=== PATIENT | female | born 1970 | race Caucasian/White ===

== ENCOUNTER 2016-10-27 17:23 | Emergency (ER) | payer SELFPAY ==
--- NOTE | 2016-10-27 17:44 | ER Document Report ---
ED Medical Screen (RME) - General Stated Complaint: DIZZY,NUMBNESS IN RIGHT ARM,HEADACHE Notes: 46 yo female c/o feeling dizzy, numbness in right arm and leg,headache. pt started new BP med Lisinopril/HCTZ about 2 weeks ago and these symptoms started. at 530 this morning, pt c/o increased dizziness, stumbling, slurred speech. presently pt feeling light headed, speech is clear presently. no chest pain or shortness of breath. + right sided deficits
[2016-10-27 18:32] LABS: ABSOLUTE BASOPHILS # (AUTO) 0.1 10^3/uL (0.0-0.2); ABSOLUTE EOSINOPHILS # (AUTO) 0.6 10^3/uL (0.0-0.6); ABSOLUTE LYMPHOCYTES (AUTO) 3.1 10^3/uL (0.5-4.7); ABSOLUTE MONOCYTES (AUTO) 0.9 10^3/uL (0.1-1.4); ABSOLUTE NEUT (AUTO) 5.1 10^3/uL (1.7-8.2); HEMATOCRIT 41.1 % (36.0-47.0); HEMOGLOBIN 13.5 g/dL (12.0-15.5); HGB HCT DIFFERENCE -0.6; LYMPHOCYTES % (AUTO) 31.7 % (13-45); MEAN CORPUSCULAR HEMOGLOBIN 25.4 pg (27.0-33.4); MEAN CORPUSCULAR HGB CONC 32.9 g/dL (32.0-36.0); MEAN CORPUSCULAR VOLUME 77 fl (80-97); MONOCYTES % (AUTO) 9.2 % (3-13); RED BLOOD COUNT 5.32 10^6/uL (3.72-5.28); RED CELL DISTRIBUTION WIDTH 20.5 % (11.5-14.0); SEGMENTED NEUTROPHILS % (AUTO) 52.1 % (42-78); WHITE BLOOD COUNT 9.7 10^3/uL (4.0-10.5)
[2016-10-27 18:41] LABS: PROTHROMBIN TIME 12.7 SEC (11.4-15.4)
--- NOTE | 2016-10-27 18:52 | ER Document Report ---
ED General - General Chief Complaint: Dizziness Stated Complaint: DIZZY,NUMBNESS IN RIGHT ARM,HEADACHE Notes: Patient is a 46-year-old female with past medical history of hypertension who presents with 2 weeks of intermittent migratory neurologic complaints. She presents today with concerns about paresthesias of her right upper and lower extremity as well as "slurred speech". States that her symptoms have been ongoing since she started a lisinopril hydrochlorothiazide combo pill. Notes that they are intermittent and do spontaneously resolve. She has had both left and right-sided symptoms. Denies a history of similar symptoms prior to the last 2 weeks. She is not had any chest pain, nausea, vomiting or diaphoresis. No neck pain, headache, or fever. Nothing improves or worsens or symptoms. She has not seen her primary care physician regarding today's concerns. TRAVEL OUTSIDE OF THE [place] IN LAST 30 DAYS: No - Related Data Allergies/Adverse Reactions: No Known Allergies Allergy (Unverified 10/27/16 17:45) Home Medications: Current Home Medications Lisinopril/Hydrochlorothiazide [Lisinopril-Hctz 20-12.5 mg Tab] 1 each PO DAILY 10/27/16 [History] Past Medical History - General Information source: Patient - Social History Smoking Status: Current Every Day Smoker Chew tobacco use (# tins/day): No Frequency of alcohol use: None Drug Abuse: None Lives with: Spouse/Significant other Family History: Reviewed & Not Pertinent Patient has suicidal ideation: No Patient has homicidal ideation: No Renal/ Medical History: Denies: Hx Peritoneal Dialysis Review of Systems - Review of Systems Notes: Constitutional: Negative for fever. HENT: Negative for sore throat. Eyes: Negative for visual changes. Cardiovascular: Negative for chest pain. Respiratory: Negative for shortness of breath. Gastrointestinal: Negative for abdominal pain, vomiting or diarrhea. Genitourinary: Negative for dysuria. Musculoskeletal: Negative for back pain. Skin: Negative for rash. Neurological: Negative for headaches, positive for right-sided weakness and numbness by complaint 10 point ROS negative except as marked above and in HPI. Physical Exam - Vital signs Vitals: Temp Pulse Resp BP Pulse Ox 98.2 F 89 14 137/89 H 94 10/27/16 17:38 10/27/16 17:38 10/27/16 17:38 10/27/16 17:38 10/27/16 17:38 Interpretation: Normal Notes: PHYSICAL EXAMINATION: GENERAL: Well-appearing, well-nourished and in no acute distress. HEAD: Atraumatic, normocephalic. EYES: Pupils equal round and reactive to light, extraocular movements intact, sclera anicteric, conjunctiva are normal. ENT: nares patent, oropharynx clear without exudates. Moist mucous membranes. NECK: Normal range of motion, supple without lymphadenopathy LUNGS: Breath sounds clear to auscultation bilaterally and equal. No wheezes rales or rhonchi. HEART: Regular rate and rhythm without murmurs ABDOMEN: Soft, nontender, normoactive bowel sounds. No guarding, no rebound. No masses appreciated. EXTREMITIES: Normal range of motion, no pitting or edema. No cyanosis. NEUROLOGICAL: 5 out of 5 strength with distal and proximally in the left upper and lower extremity. The right upper extremity and lower summary both move spontaneously with full strength when not specific testing strength of the patient provides minimal to no effort in either the upper or lower distributions on the right during specific strength testing. Finger to nose normal bilaterally. No pronator drift. Face symmetric. No aphasia. Speech is clear and fluent. Pupils equal and reactive. Extraocular motions intact. Palatal elevation symmetric. PSYCH: Normal mood, normal affect. SKIN: Warm, Dry, normal turgor, no rashes or lesions noted. Course - Re-evaluation Re-evalutation: 10/27/16 18:46 Patient presents with complaints of lightheadedness with associated intermittent neurologic symptoms. Today she is complaining about right-sided paresthesias and weakness both in upper and lower extremity but not the face. She also complains of slurred speech. Physical examination reveals multiple inconsistencies in patient's neurologic exam that are not consistent with an actual stroke. Specifically patient will not provide any strength effort on her right side when testing simultaneously on the left. Likewise patient will not hold her arm up when asked to for strength testing but performs pronator drift testing without difficulty. Likewise finger to nose testing is handled without any apparent strain on her upper extremity for strength but again when strength testing is requested her arm is not able to be lifted off the bed voluntarily. Her face is symmetric. If patient truly had a stroke in the distribution that would decrease strength in both her lower and upper extremity of the right her face would likewise be involved (MCA distribution). Her clinical history of migratory neurologic deficits including both left and right- sided symptoms is not consistent with either a stroke or TIA. Alternative considerations include a medication side effect as patient states the symptoms started after starting both lisinopril and hydrochlorothiazide, and it could be secondary to patient's rapid reduction in blood pressure from her normal which is apparently in the 220s to the 130s in the span of just several days. Multiple sclerosis is another alternative consideration. Her CT scan is unremarkable. Laboratories likewise are not notable for any acute findings. I do not see an indication for emergent MRI imaging, carotid Doppler studies, or admission to the hospital. I have encouraged her to follow-up with neurology as an outpatient should her symptoms fail to resolve after discontinuation of the medication. I've also encouraged her to follow-up with her primary care physician.At this time will discharge with return precautions and follow-up recommendations. Verbal discharge instructions given a the bedside and opportunity for questions given. Medication warnings reviewed. Patient is in agreement with this plan and has verbalized understanding of return precautions and the need for primary care follow-up in the next 24-72 hours. 10/28/16 1930 Of note, patient was able to ambulate out of the emergency department without any difficulty. - Vital Signs Vital signs: Temp Pulse Resp BP Pulse Ox 98.2 F 80 17 133/70 H 98 10/27/16 17:38 10/27/16 18:26 10/27/16 19:17 10/27/16 19:17 10/27/16 19:17 - Laboratory Result Diagrams: 10/27/16 18:15 10/27/16 19:00 Laboratory results interpreted by me: 10/27/16 10/27/16 18:15 19:00 RBC 5.32 H MCV 77 L MCH 25.4 L RDW 20.5 H Glucose 123 H - Diagnostic Test Radiology reviewed: Image reviewed, Reports reviewed - EKG Interpretation by Me Additional EKG results interpreted by me: 10/28/16 03:18 Normal sinus rhythm. Rate 74. No ST elevations or depressions. QTC 422. Discharge - Discharge Clinical Impression: Lightheadedness, Numbness and tingling Condition: Good Disposition: HOME, SELF-CARE Additional Instructions: Your symptoms do not appear to be related to a stroke today. These follow-up closely with your primary care doctor and follow-up with neurology for symptoms have not resolved in the next 24-48 hours. Return immediately to the emergency department if you have worsening of any of your other symptoms. Please also return if you have any new concerns, chest pain, shortness of breath, vomiting, or any other symptoms that are worrisome to you. Forms: Return to Work Referrals: OLIVIA KANG, LATOYA-C [Primary Care Provider] - Follow up as needed
[2016-10-27 19:25] VITALS: BP 133/70
[2016-10-27 19:37] LABS: ALANINE AMINOTRANSFERASE 20 U/L (9-52); ALBUMIN 3.7 g/dL (3.5-5.0); ALKALINE PHOSPHATASE 77 U/L (38-126); ANION GAP 13 (5-19); ASPARTATE AMINO TRANSFERASE 15 U/L (14-36); BILIRUBIN,TOTAL 0.3 mg/dL (0.2-1.3); BLOOD UREA NITROGEN 15 mg/dL (7-20); CALCIUM 9.6 mg/dL (8.4-10.2); CARBON DIOXIDE 24 mmol/L (22-30); CHLORIDE 103 mmol/L (98-107); GLUCOSE 123 mg/dL (75-110); POTASSIUM 4.1 mmol/L (3.6-5.0); SODIUM 139.9 mmol/L (137-145); TOTAL PROTEIN 6.7 g/dL (6.3-8.2)
--- NOTE | 2016-10-28 11:26 | EKG REPORT ---
SEVERITY:- ABNORMAL ECG - SINUS RHYTHM CONSIDER LEFT VENTRICULAR HYPERTROPHY BORDERLINE T ABNORMALITIES, INFERIOR LEADS : Confirmed by: Jonathon Escobar 28-Oct-2016 11:25:46
== END 2016-10-27 19:18 | disposition home or self-care (01) ==
LOC: ER 17:23
DX: R42 Dizziness and giddiness (principal); R20.0 Anesthesia of skin; M79.601 Pain in right arm; R51 Headache; F17.210 Nicotine dependence, cigarettes, uncomplicated; Z79.899 Other long term (current) drug therapy
CPT/HCPCS: 36415; 70450; 80053; 85025; 85610; 93005; 93010; 99284

== ENCOUNTER 2016-10-29 13:38 | Inpatient (IN) | payer SELFPAY ==
--- NOTE | 2016-10-29 14:11 | ER Document Report ---
ED Medical Screen (RME) - General Stated Complaint: ABNORMAL LABS Notes: Patient is a 46-year-old female presents emergency department after referral from Christiane Bergeron for evaluation. Patient was seen here [address] Rome and was ruled out having a CVA. Patient presents with numbness on the right side of her body. That is not resolved over the past 2 days. Denies urinary or stool incontinence, saddle anesthesia I have greeted and performed a rapid initial assessment of this patient. A comprehensive ED assessment and evaluation of the patient, analysis of test results and completion of the medical decision making process will be conducted by additional ED providers. TRAVEL OUTSIDE OF THE [place] IN LAST 30 DAYS: No - Related Data Allergies/Adverse Reactions: No Known Allergies Allergy (Verified 10/29/16 14:09) Past Medical History - Past Medical History Cardiac Medical History: Reports: Hx Hypertension Renal/ Medical History: Denies: Hx Peritoneal Dialysis - Immunizations Hx Diphtheria, Pertussis, Tetanus Vaccination: Yes
[2016-10-29] MEDS ORDERED: ONDANSETRON HCL INJ/PF 4 MG/2 ML SDV IV ONE (17:16)
[2016-10-29] MEDS ORDERED: NORMAL SALINE 1000 ML 1,000 ML IV ONE ×2 (17:16)
[2016-10-29] MEDS ORDERED: PROCHLORPERAZINE EDISYLATE INJ 10 MG/2 ML VIAL IV ONE (17:16)
[2016-10-29 18:48] LABS: ABSOLUTE EOSINOPHILS # (AUTO) 0.3 10^3/uL (0.0-0.6); ABSOLUTE LYMPHOCYTES (AUTO) 2.9 10^3/uL (0.5-4.7); ABSOLUTE MONOCYTES (AUTO) 0.7 10^3/uL (0.1-1.4); ABSOLUTE NEUT (AUTO) 4.7 10^3/uL (1.7-8.2); BASOPHILS % (AUTO) 0.5 % (0-2); EOSINOPHILS % (AUTO) 3.3 % (0-6); HEMATOCRIT 40.9 % (36.0-47.0); HEMOGLOBIN 13.3 g/dL (12.0-15.5); LYMPHOCYTES % (AUTO) 33.6 % (13-45); MEAN CORPUSCULAR HEMOGLOBIN 25.2 pg (27.0-33.4); MEAN CORPUSCULAR HGB CONC 32.4 g/dL (32.0-36.0); MEAN CORPUSCULAR VOLUME 78 fl (80-97); MONOCYTES % (AUTO) 8.2 % (3-13); RED BLOOD COUNT 5.27 10^6/uL (3.72-5.28); RED CELL DISTRIBUTION WIDTH 20.6 % (11.5-14.0); SEGMENTED NEUTROPHILS % (AUTO) 54.4 % (42-78); WHITE BLOOD COUNT 8.6 10^3/uL (4.0-10.5)
[2016-10-29 19:13] LABS: ALANINE AMINOTRANSFERASE 23 U/L (9-52); ALBUMIN 4.1 g/dL (3.5-5.0); ALKALINE PHOSPHATASE 80 U/L (38-126); ANION GAP 11 (5-19); ASPARTATE AMINO TRANSFERASE 15 U/L (14-36); BILIRUBIN,TOTAL 0.5 mg/dL (0.2-1.3); BLOOD UREA NITROGEN 14 mg/dL (7-20); CALCIUM 9.7 mg/dL (8.4-10.2); CARBON DIOXIDE 25 mmol/L (22-30); CHLORIDE 105 mmol/L (98-107); CREATININE RESULT 0.69 mg/dL (0.52-1.25); GLUCOSE 79 mg/dL (75-110); POTASSIUM 4.1 mmol/L (3.6-5.0); SODIUM 140.7 mmol/L (137-145); TOTAL PROTEIN 6.5 g/dL (6.3-8.2)
[2016-10-29] MEDS ORDERED: ASPIRIN 325 MG TABLET PO ONE (21:29)
--- NOTE | 2016-10-29 21:48 | EKG REPORT ---
SEVERITY:- NORMAL ECG - SINUS RHYTHM : Confirmed by: Jonathon Escobar 29-Oct-2016 21:47:28
[2016-10-29] MEDS ORDERED: ACETAMINOPHEN 325 MG TABLET PO PRN (21:57)
[2016-10-29] MEDS ORDERED: DOCUSATE SODIUM 100 MG CAPSULE PO PRN (21:57)
[2016-10-29] MEDS ORDERED: ONDANSETRON HCL INJ/PF 4 MG/2 ML SDV IV PRN (21:57)
--- NOTE | 2016-10-29 22:12 | ER Document Report ---
ED General - General Chief Complaint: Numbness Stated Complaint: ABNORMAL LABS TRAVEL OUTSIDE OF THE [place] IN LAST 30 DAYS: No - HPI Patient complains to provider of: numbness decreased right upper right lower extremity strength Notes: Patient coming in for evaluation of right arm numbness right arm weakness right lower extremity weakness. Patient states is been ongoing for approximately now 72 hours was recently seen and evaluated no clear etiology seen was discharged home patient follow up with her primary care physician again and was referred into the ER because of worsening symptoms. Patient states she is unable to move her right arm however sensation is intact. Patient also states that she is having weakness in her right foot. Denies any trauma denies any head trauma. Patient denies any past medical history cell for hypertension she takes HCTZ and lisinopril Also complains of mild headaches and dizziness. Patient is unable to quantify her dizziness. - Related Data Allergies/Adverse Reactions: No Known Allergies Allergy (Verified 10/29/16 14:09) Past Medical History - Social History Smoking Status: Current Every Day Smoker Chew tobacco use (# tins/day): No Frequency of alcohol use: None Drug Abuse: None Family History: Reviewed & Not Pertinent Patient has suicidal ideation: No Patient has homicidal ideation: No - Past Medical History Cardiac Medical History: Reports: Hx Hypertension Renal/ Medical History: Denies: Hx Peritoneal Dialysis Past Surgical History: Reports: Hx Tubal Ligation - Immunizations Hx Diphtheria, Pertussis, Tetanus Vaccination: Yes Review of Systems - Review of Systems Constitutional: No symptoms reported EENT: No symptoms reported Cardiovascular: No symptoms reported Respiratory: No symptoms reported Gastrointestinal: No symptoms reported Genitourinary: No symptoms reported Female Genitourinary: No symptoms reported Musculoskeletal: Other - Weakness Skin: No symptoms reported Hematologic/Lymphatic: No symptoms reported Neurological/Psychological: No symptoms reported -: Yes All other systems reviewed and negative Physical Exam - Vital signs Vitals: Temp Pulse Resp BP Pulse Ox 98.1 F 73 18 154/87 H 97 10/29/16 14:09 10/29/16 14:09 10/29/16 14:09 10/29/16 14:09 10/29/16 14:09 Interpretation: Normal - General General appearance: Appears well, Alert - HEENT Head: Normocephalic, Atraumatic Eyes: Normal Pupils: PERRL - Respiratory Respiratory status: No respiratory distress Chest status: Nontender Breath sounds: Normal Chest palpation: Normal - Cardiovascular Rhythm: Regular Heart sounds: Normal auscultation Murmur: No - Abdominal Inspection: Normal Distension: No distension Bowel sounds: Normal Tenderness: Nontender Organomegaly: No organomegaly - Back Back: Normal, Nontender - Extremities General upper extremity: Normal inspection, Nontender, Normal color, Normal temperature General lower extremity: Normal inspection, Nontender, Normal color, Normal temperature - Neurological Neuro grossly intact: Yes Cognition: Normal Orientation: AAOx4 [place] Coma Scale Eye Opening: Spontaneous [place] Coma Scale Verbal: Oriented [place] Coma Scale Motor: Obeys Commands [place] Coma Scale Total: 15 Speech: Normal Cranial nerves: Normal Motor strength normal: LUE, LLE. No: RUE - Decreased strength on the right upper extremity decreased letterpress setter strength when compared to the left. Patient does have reflexes intact patient is unable to hold her arm up to perform a pronator testing. There is no effort against gravity when trying to lift up the right arm., RLE - Decreased like strength in the right lower extremity normal Babinski's patient is able to lift leg off the bed approximately 4-5 inches Additional motor exam normals: Pronator drift. No: Equal letterpress setter Sensory: Normal Brachioradialis - Reflex grade: 2 = Normal - Psychological Associated symptoms: Normal affect, Normal mood - Skin Skin Temperature: Warm Skin Moisture: Dry Skin Color: Normal Course - Re-evaluation Re-evalutation: 10/29/16 22:35 Patient had a repeat of her CT head which was negative for any acute pathology. On initial examination unknown reason 1 patient would be unable to use her right side therefore an MRI was performed MRI of the brain MRA and of the cervical spine. MRA showed no specific etiology cervical spine only showed mild stenosis at C566 pace MR of the brain showed possible acute to subacute stroke in the right latasha and the right thalamus. They relate is to the patient. Also splinted the patient because of the length duration of her symptoms she would not be a candidate for any kind of intervention or thrombolytic therapy. Discussed with the hospitalist. Patient will be admitted for further evaluation. Unclear etiology of stroke EKG does not show any arrhythmias. Lab work also shows no clear etiology. - Vital Signs Vital signs: Temp Pulse Resp BP Pulse Ox 98.1 F 73 18 154/87 H 97 10/29/16 14:09 10/29/16 14:09 10/29/16 14:09 10/29/16 14:09 10/29/16 14:09 - Laboratory Result Diagrams: 10/29/16 18:20 10/29/16 18:20 Laboratory results interpreted by me: 10/29/16 18:20 MCV 78 L MCH 25.2 L RDW 20.6 H Discharge - Discharge Clinical Impression: left latasha infarction, left thalamic infarction, right upper and lower extremity weakness, Dizziness Condition: Good Disposition: ADMITTED OBSERVATION Admitting Provider: Hospitalist - [facility] Admitted: Telemetry Referrals: OLIVIA KANG FNP-C [Primary Care Provider] - Follow up as needed
[2016-10-30] MEDS: HEPARIN SOD (PORCINE) 5,000 UNIT/ML 1 ML SYRINGE SUBCUT SCH ×3 (00:09→14:34)
[2016-10-30] MEDS: ATORVASTATIN CALCIUM 80 MG TABLET PO SCH (00:09)
--- NOTE | 2016-10-30 05:03 | PDOC H&P ---
History of Present Illness Admission Date/PCP: 10/29/16 21:58 OLIVIA KANG, ENVIRONMENTAL ENGINEERING MANAGER-C Patient complains of: Numbness to the right side History of Present Illness: ERUM MONTANO is a 46 year old female, with a past medical history of hypertension. Who had been her usual state of health until approximately 2 weeks ago after starting a combination lisinopril and hydrochlorothiazide for hypertension. Patient and states her symptoms of dizziness began within 48 hours of his medication and notes that her blood pressure in the 220 systolic range dropped to the 130 systolic. 72 hours ago the patient developed right sided numbness and left lower extremity weakness, intermittent dizziness and slurred speech prompting her to seek evaluation emergency room having a workup including an EKG and CT of the head which was unremarkable, as symptoms were difficult to reproduce and intermittent she was discharged home with follow -up with primary care. The patient has had persistent symptoms in addition to headache prompting her to seek reevaluation of primary care whom referred her back to the emergency room where an MRI of the head reveals a subacute versus acute left inferior latasha and left inferior medial temporal lobe infarct. Patient is currently in no acute distress denying headache, blurred vision, word finding difficulty, or slurred speech. She does complain of right foot numbness and weakness. Past Medical History Cardiac Medical History: Reports: Hypertension Psychiatric Medical History: Reports: Tobacco Dependency Past Surgical History Past Surgical History: Reports: Tubal Ligation Social History Smoking Status: Current Every Day Smoker Cigarettes Packs Per Day: 10 Number of Years Smokin Frequency of Alcohol Use: None Hx Recreational Drug Use: No Drugs: None Hx Prescription Drug Abuse: No - Advance Directive Resuscitation Status: Full Code Family History Family History: CAD, Hypertension Parental Family History Reviewed: Yes Children Family History Reviewed: Yes Sibling(s) Family History Reviewed.: Yes Medication/Allergy Home Medications: Lisinopril/Hydrochlorothiazide [Lisinopril-Hctz 20-12.5 mg Tab] 1 each PO DAILY 10/27/16 Allergies/Adverse Reactions: No Known Allergies Allergy (Verified 10/29/16 14:09) Review of Systems Constitutional: PRESENT: as per HPI, weakness. ABSENT: anorexia, chills, fatigue, fever(s), headache(s), night sweats Eyes: ABSENT: visual disturbances Ears: ABSENT: hearing changes Cardiovascular: ABSENT: chest pain, dyspnea on exertion, edema, orthropnea, palpitations Respiratory: ABSENT: cough, hemoptysis Gastrointestinal: ABSENT: abdominal pain, constipation, diarrhea, hematemesis, hematochezia, nausea, vomiting Genitourinary: ABSENT: dysuria, hematuria Musculoskeletal: PRESENT: muscle weakness. ABSENT: back pain, deformity, joint swelling Integumentary: ABSENT: rash, wounds Neurological: PRESENT: focal weakness, weakness - Right foot numbness and weakness, though no discrepancy in light touch sensation or proprioception. ABSENT: abnormal movements, abnormal speech, confusion, convulsions, dizziness, frequent falls, lack of coordination, restless legs, syncope, tingling, tremor(s ), vertigo Psychiatric: ABSENT: anxiety, depression, homidical ideation, suicidal ideation Endocrine: ABSENT: cold intolerance, heat intolerance, polydipsia, polyuria Hematologic/Lymphatic: ABSENT: easy bleeding, easy bruising Physical Exam Vital Signs: Temp Pulse Resp BP Pulse Ox 98.5 F 100 20 139/85 H 100 10/30/16 03:35 10/30/16 03:39 10/30/16 03:39 10/30/16 03:39 10/30/16 03:39 General appearance: PRESENT: no acute distress, cooperative. ABSENT: mild distress Head exam: PRESENT: atraumatic, normocephalic Eye exam: PRESENT: conjunctiva pink, EOMI, PERRLA. ABSENT: scleral icterus Ear exam: PRESENT: normal external ear exam Mouth exam: PRESENT: moist, tongue midline Neck exam: ABSENT: carotid bruit, JVD, lymphadenopathy, thyromegaly Respiratory exam: PRESENT: clear to auscultation [place]wn. ABSENT: rales, rhonchi, wheezes Cardiovascular exam: PRESENT: RRR. ABSENT: diastolic murmur, rubs, systolic murmur Pulses: PRESENT: normal dorsalis pedis pul Vascular exam: PRESENT: normal capillary refill GI/Abdominal exam: PRESENT: normal bowel sounds, soft. ABSENT: distended, guarding, mass, organolmegaly, rebound, tenderness Rectal exam: PRESENT: deferred Extremities exam: PRESENT: other - 4+ strength with right leg dorsiflexion no discrepancy of light touch sensation or proprioception Neurological exam: PRESENT: alert, awake, oriented to person, oriented to place , oriented to time, oriented to situation, CN II-XII grossly intact, motor sensory deficit - 4+ strength with right leg dorsiflexion no discrepancy of light touch sensation or proprioception Psychiatric exam: PRESENT: appropriate affect, normal mood. ABSENT: homicidal ideation, suicidal ideation Skin exam: PRESENT: dry, intact, warm. ABSENT: cyanosis, rash Results Impressions: Brain MRI with MRA 10/29/16 00:00 IMPRESSION: NORMAL MRA OF THE [place]. Chest X-Ray 10/29/16 00:00 IMPRESSION: NO ACUTE RADIOGRAPHIC FINDING IN THE CHEST. Head CT 10/29/16 15:21 IMPRESSION: NORMAL BRAIN CT WITHOUT CONTRAST. Head MRI 10/29/16 16:59 IMPRESSION: Positive for 2 small foci of acute or sub-acute infarction in the left inferior latasha and left inferior-medial temporal lobe. Cervical Spine MRI 10/29/16 17:00 IMPRESSION: C5-C6: Mild spinal stenosis and exit foraminal stenosis.2.3 cm subcutaneous mixed signal ovoid lesion, possible dermal inclusion cyst or atypical lipoma. Assessment & Plan - Diagnosis (1) CVA (cerebral vascular accident) Qualifiers: Laterality of affected vessel: right Is this a current diagnosis for this admission?: YesPlan: I'm concerned for a watershed event given the history of rapid correction of blood pressure and subsequently she'll be admitted with a CVA care set, permissive hypertension, carotid Doppler, 2-D echo, aspirin, full dose Lipitor, physical and occupational therapy (2) Hypertension Is this a current diagnosis for this admission?: YesPlan: Permissive hypertension goal systolic blood pressure in the 180s, when necessary saline bolus and maintenance of supine position pending elevation of blood pressure. (3) Tobacco dependence Is this a current diagnosis for this admission?: YesPlan: Tobacco Dependence patient received tobacco cessation counseling and offered nicotine replacement options - Time Time Spent: 50 to 70 Minutes
[2016-10-30 06:37] LABS: ABSOLUTE BASOPHILS # (AUTO) 0.1 10^3/uL (0.0-0.2); ABSOLUTE EOSINOPHILS # (AUTO) 0.5 10^3/uL (0.0-0.6); ABSOLUTE LYMPHOCYTES (AUTO) 2.6 10^3/uL (0.5-4.7); ABSOLUTE MONOCYTES (AUTO) 0.7 10^3/uL (0.1-1.4); ABSOLUTE NEUT (AUTO) 3.3 10^3/uL (1.7-8.2); BASOPHILS % (AUTO) 1.1 % (0-2); EOSINOPHILS % (AUTO) 6.5 % (0-6); HEMATOCRIT 37.9 % (36.0-47.0); HEMOGLOBIN 12.2 g/dL (12.0-15.5); HGB HCT DIFFERENCE -1.3; LYMPHOCYTES % (AUTO) 36.2 % (13-45); MEAN CORPUSCULAR HEMOGLOBIN 24.9 pg (27.0-33.4); MEAN CORPUSCULAR HGB CONC 32.2 g/dL (32.0-36.0); MEAN CORPUSCULAR VOLUME 78 fl (80-97); MONOCYTES % (AUTO) 9.7 % (3-13); RED BLOOD COUNT 4.89 10^6/uL (3.72-5.28); RED CELL DISTRIBUTION WIDTH 19.4 % (11.5-14.0); SEGMENTED NEUTROPHILS % (AUTO) 46.5 % (42-78); WHITE BLOOD COUNT 7.1 10^3/uL (4.0-10.5)
[2016-10-30 06:58] LABS: ANION GAP 9 (5-19); BLOOD UREA NITROGEN 15 mg/dL (7-20); CALCIUM 8.7 mg/dL (8.4-10.2); CARBON DIOXIDE 22 mmol/L (22-30); CHLORIDE 109 mmol/L (98-107); CHOLESTEROL 205.71 mg/dL (0-200); CREATININE RESULT 0.72 mg/dL (0.52-1.25); Direct HDL 48 mg/dL (>40); GLUCOSE 83 mg/dL (75-110); POTASSIUM 4.2 mmol/L (3.6-5.0); SODIUM 139.5 mmol/L (137-145); TRIGLYCERIDES 209 mg/dL (<150)
[2016-10-30 07:08] LABS: DIRECT LDL 125 mg/dL (<100)
[2016-10-30 07:15] LABS: VLDL CHOLESTEROL 41.8 mg/dL (10-31)
[2016-10-30] MEDS: ASPIRIN 325 MG TABLET, ENT COATED PO SCH (10:09)
--- NOTE | 2016-10-30 12:55 | PDOC PROGRESS REPORT ---
Subjective Progress Note for:: 10/30/16 Subjective:: states feels well more strengh in right leg ; but right arm is still paralized : unable to lift hand from stretcher finger tips numb Patient had PT-OT evaluation Physical Exam Vital Signs: Temp Pulse Resp BP Pulse Ox 98.0 F 66 16 138/67 H 99 10/30/16 11:30 10/30/16 11:30 10/30/16 11:30 10/30/16 11:30 10/30/16 11:30 Intake & Output 10/29/16 10/30/16 10/31/16 00:59 00:59 00:59 Intake Total 442 Output Total 250 Balance 192 Weight 86 kg General appearance: PRESENT: no acute distress, well-developed, well-nourished Head exam: PRESENT: atraumatic, normocephalic, other - some facial symetry - no real droop Eye exam: PRESENT: conjunctiva pink, EOMI, PERRLA. ABSENT: scleral icterus Ear exam: PRESENT: normal external ear exam Mouth exam: PRESENT: moist, tongue midline Neck exam: ABSENT: carotid bruit, JVD, lymphadenopathy, thyromegaly Respiratory exam: PRESENT: clear to auscultation rayshawn. ABSENT: rales, rhonchi, wheezes Cardiovascular exam: PRESENT: RRR. ABSENT: diastolic murmur, rubs, systolic murmur Pulses: PRESENT: normal dorsalis pedis pul Vascular exam: PRESENT: normal capillary refill GI/Abdominal exam: PRESENT: normal bowel sounds, soft. ABSENT: distended, guarding, mass, organolmegaly, rebound, tenderness Rectal exam: PRESENT: deferred Extremities exam: PRESENT: full ROM. ABSENT: calf tenderness, clubbing, pedal edema Neurological exam: PRESENT: alert, awake, oriented to person, oriented to place , oriented to time, oriented to situation, other - paralysis right arm unable to move fingers unable to lift arm off the stetcher right leg weak strengh 2/5 Psychiatric exam: PRESENT: appropriate affect, normal mood. ABSENT: homicidal ideation, suicidal ideation Skin exam: PRESENT: dry, intact, warm. ABSENT: cyanosis, rash Results Laboratory Results: 10/30/16 06:27 10/30/16 06:27 10/30/16 10/30/16 06:27 06:27 WBC 7.1 RBC 4.89 Hgb 12.2 Hct 37.9 MCV 78 L MCH 24.9 L MCHC 32.2 RDW 19.4 H Plt Count 261 Seg Neutrophils % 46.5 Lymphocytes % 36.2 Monocytes % 9.7 Eosinophils % 6.5 H Basophils % 1.1 Absolute Neutrophils 3.3 Absolute Lymphocytes 2.6 Absolute Monocytes 0.7 Absolute Eosinophils 0.5 Absolute Basophils 0.1 Sodium 139.5 Potassium 4.2 Chloride 109 H Carbon Dioxide 22 Anion Gap 9 BUN 15 Creatinine 0.72 Est GFR ( Amer) > 60 Est GFR (Non-Af Amer) > 60 Glucose 83 Calcium 8.7 Triglycerides 209 H Cholesterol 205.71 H LDL Cholesterol Direct 125 H VLDL Cholesterol 41.8 H HDL Cholesterol 48 Impressions: Brain MRI with MRA 10/29/16 00:00 IMPRESSION: NORMAL MRA OF THE [place]. Chest X-Ray 10/29/16 00:00 IMPRESSION: NO ACUTE RADIOGRAPHIC FINDING IN THE CHEST. Head CT 10/29/16 15:21 IMPRESSION: NORMAL BRAIN CT WITHOUT CONTRAST. Head MRI 10/29/16 16:59 IMPRESSION: Positive for 2 small foci of acute or sub-acute infarction in the left inferior latasha and left inferior-medial temporal lobe. Cervical Spine MRI 10/29/16 17:00 IMPRESSION: C5-C6: Mild spinal stenosis and exit foraminal stenosis.2.3 cm subcutaneous mixed signal ovoid lesion, possible dermal inclusion cyst or atypical lipoma. Assessment & Plan - Diagnosis (1) CVA (cerebral vascular accident) Qualifiers: Laterality of affected vessel: right Is this a current diagnosis for this admission?: YesPlan: OT Evaluation : Patient with overall decrease in daily safe self care function since recent hospitilization. Increase time required for self care secondary to use of one handed technique. She will benefit from skilled OT to address right shoulder discomfort; right UE weakness and decrease ROM and coordination. Reviewed self ROM and weight bearing on RUE during evaluation. [ End ] PT Evaluation : Patient presents as agreeable to treatment, oriented x 3 with decrease in RUE/ RLE strength and endurance as well as decrease in functional transfer and gait abilities with patient ambulating 1 x 50' with front wheeled walker and min assist of 1 with a slow, antalgic gait pattern without loss of balance with verbal cues given for right foot placement with discoordination noted, for sequencing with walker, to stand upright, to increase step height/length RLE, to push down onto walker with RUE and for safety awareness. Weight shifting and trunk strengthening exercises were performed in sitting with min assist of 1 and in standing with mod assist of 1. She performed supine BLE ther ex consisting of quad sets, glut sets, heel slides, hip abd/adduction, SLR's and ankle pumps x 10 reps each with assistance given as needed. She was positioned supine post treatment with all needs at her side. All questions were answered. Will continue to follow for strengthening exercises, transfer training and gait training activities to achieve the above mentioned goals to assist patient in returning to highest functional mobility status. Recommend home with home health PT upon D/C. [ End ] continue present meds ASA- lipitor work up completed with echo still pending continue to monitor (2) Hypertension Is this a current diagnosis for this admission?: YesPlan: permissive hypertension hold prior meds (3) Tobacco dependence Is this a current diagnosis for this admission?: YesPlan: nicotine patch - Time Time Spent with patient: 25-34 minutes
--- NOTE | 2016-10-30 15:32 | XCELERA REPORT ---
[address] [address] Transthoracic Echocardiogram Report Name: ERUM MONTANO Age: 46 yrs Gender: Female : 1970 Patient Status: Inpatient Patient Location: [id number]\S\315\[id number]\A Study Date: 10/30/2016 02:07 PM Height: 63 in Weight: 189 lb BSA: 1.9 m2 Procedure: A two-dimensional transthoracic echocardiogram with color flow and Doppler was performed. Study Quality: Fair. Reason For Study: acute CVA History: CVA. Ordering Physician: JAMAAL CHRISTIAN Performed By: Gena Cunha Interpretation Summary There is no obvious cardiac source of embolus noted on this transthoracic echocardiogram. Follow-up with a PAVITHRA is suggested if cardiac source is still suspected. The left ventricle is normal in size. There is normal left ventricular wall thickness. LV EF is > than 60% Left ventricular systolic function is normal. Doppler measurements suggest normal left ventricular diastolic function The left ventricular wall motion is normal. There is no thrombus. There is no ventricular septal defect visualized. The right ventricle is not well visualized secondary to technical limitations The left atrial size is normal. There is no evidence of mitral valve prolapse. There is no vegetation seen on the mitral valve. There is no mitral valve stenosis. There is a trace amount of mitral regurgitation There is no aortic valve stenosis There is no LVOT obstruction. No aortic regurgitation is present. There is no tricuspid stenosis. There is a trace amount of tricuspid regurgitation Right ventricular systolic pressure is normal. is 25 mm of Hg , with RA mean of 5. There is no pericardial effusion. There is no obvious cardiac source of embolus noted on this transthoracic echocardiogram. Follow-up with a PAVITHRA is suggested if cardiac source is still suspected MMode/2D Measurements \T\ Calculations RVDd: 2.3 cm LVIDd: 5.1 cmFS: 33.8 % Ao root diam: 3.1 cm IVSd: 1.1 cm LVIDs: 3.4 cmEDV(Teich): 123.7 ml LVPWd: 1.1 cmESV(Teich): 46.6 ml Ao root area: 7.4 cm2 EF(Teich): 62.3 % LA dimension: 3.6 cm LVOT diam: 2.2 cm LVOT area: 3.7 cm2 Doppler Measurements \T\ Calculations MV E max raman: MV P1/2t max raman: Ao V2 max: LV V1 max P.3 cm/sec 90.3 cm/sec 132.5 cm/sec 4.4 mmHg MV A max raman: MV P1/2t: 57.0 msec Ao max PG: LV V1 max: 62.7 cm/sec MVA(P1/2t): 3.9 cm2 7.0 mmHg 105.1 cm/sec MV E/A: 1.5 MV dec slope: JOHN(V,D): 2.9 cm2 463.9 cm/sec2 MV dec time: 0.21 sec PA V2 max: TR max raman: 90.8 cm/sec 221.1 cm/sec PA max PG: TR max P.5 mmHg 3.3 mmHg Left Ventricle The left ventricle is normal in size. There is normal left ventricular wall thickness. LV EF is > than 60%. Left ventricular systolic function is normal. Doppler measurements suggest normal left ventricular diastolic function. The left ventricular wall motion is normal. There is no thrombus. There is no ventricular septal defect visualized. Right Ventricle The right ventricle is not well visualized secondary to technical limitations. Atria The right atrium is normal. The left atrial size is normal. The interatrial septum is intact with no evidence for an atrial septal defect. Mitral Valve There is no evidence of mitral valve prolapse. There is no vegetation seen on the mitral valve. There is no mitral valve stenosis. There is a trace amount of mitral regurgitation. Aortic Valve The aortic valve is trileaflet. The aortic valve opens well. There is no aortic valvular vegetation. There is no aortic valve stenosis. There is no LVOT obstruction. No aortic regurgitation is present. Tricuspid Valve There is no tricuspid stenosis. There is a trace amount of tricuspid regurgitation. Right ventricular systolic pressure is normal. is 25 mm of Hg , with RA mean of 5. Pulmonic Valve There is no pulmonic valvular stenosis. There is no pulmonic valvular regurgitation. Great Vessels The aortic root is normal size. Effusions There is no pericardial effusion. : JAMAAL CHRISTIAN > Valorie Chan
[2016-10-31] MEDS: ATORVASTATIN CALCIUM 80 MG TABLET PO SCH ×2 (01:04→21:55)
[2016-10-31] MEDS: HEPARIN SOD (PORCINE) 5,000 UNIT/ML 1 ML SYRINGE SUBCUT SCH ×4 (01:05→21:55)
[2016-10-31] MEDS ORDERED: SENNOSIDES/DOCUSATE 8.6-50 MG 1 EACH TABLET PO PRN (09:24)
[2016-10-31] MEDS ORDERED: LACTULOSE SYRUP 20 GM/30 ML UDCUP PO PRN (09:24)
--- NOTE | 2016-10-31 09:41 | PDOC PROGRESS REPORT ---
Subjective Progress Note for:: 10/31/16 Subjective:: Patient is complaining of constipation no headache lightheadedness no chest pain no shortness of breath Hemiparesis is persistent, and patient is unable to use her right upper extremity. She states that she has no feelings now in the right arm and on the starting to hurt She ambulates striking her right lower extremity We discussed at length rehabilitation, and patient agrees to go to acute rehabilitation She wishes to go to a facility at [facility] Physical Exam Vital Signs: Temp Pulse Resp BP Pulse Ox 98.2 F 58 L 12 131/74 H 100 10/31/16 07:18 10/31/16 08:00 10/31/16 08:00 10/31/16 08:00 10/31/16 08:00 Intake & Output 10/30/16 10/31/16 11/01/16 00:59 00:59 00:59 Intake Total 1311 56 Output Total 700 Balance 611 56 Weight 86 kg 88.4 kg General appearance: PRESENT: no acute distress, well-developed, well-nourished Head exam: PRESENT: atraumatic, normocephalic Eye exam: PRESENT: conjunctiva pink, EOMI, PERRLA. ABSENT: scleral icterus Ear exam: PRESENT: normal external ear exam Mouth exam: PRESENT: moist, tongue midline Neck exam: ABSENT: carotid bruit, JVD, lymphadenopathy, thyromegaly Respiratory exam: PRESENT: clear to auscultation rayshawn. ABSENT: rales, rhonchi, wheezes Cardiovascular exam: PRESENT: RRR. ABSENT: diastolic murmur, rubs, systolic murmur Pulses: PRESENT: normal dorsalis pedis pul Vascular exam: PRESENT: normal capillary refill GI/Abdominal exam: PRESENT: normal bowel sounds, soft. ABSENT: distended, guarding, mass, organolmegaly, rebound, tenderness Rectal exam: PRESENT: deferred Extremities exam: PRESENT: full ROM. ABSENT: calf tenderness, clubbing, pedal edema Neurological exam: PRESENT: alert, awake, oriented to person, oriented to place , oriented to time, oriented to situation, other - Patient unable to move the right upper extremity Right lower extremity is still weak strength about 2 over 5 Psychiatric exam: PRESENT: appropriate affect, normal mood. ABSENT: homicidal ideation, suicidal ideation Skin exam: PRESENT: dry, intact, warm. ABSENT: cyanosis, rash Results Laboratory Results: 10/30/16 06:27 10/30/16 06:27 Impressions: Brain MRI with MRA 10/29/16 00:00 IMPRESSION: NORMAL MRA OF [place]. Chest X-Ray 10/29/16 00:00 IMPRESSION: NO ACUTE RADIOGRAPHIC FINDING IN THE CHEST. Head CT 10/29/16 15:21 IMPRESSION: NORMAL BRAIN CT WITHOUT CONTRAST. Head MRI 10/29/16 16:59 IMPRESSION: Positive for 2 small foci of acute or sub-acute infarction in the left inferior latasha and left inferior-medial temporal lobe. Cervical Spine MRI 10/29/16 17:00 IMPRESSION: C5-C6: Mild spinal stenosis and exit foraminal stenosis.2.3 cm subcutaneous mixed signal ovoid lesion, possible dermal inclusion cyst or atypical lipoma. Echocardiogram normal EF, no clot in the left ventricule Carotid ultrasound still pending Assessment & Plan - Diagnosis (1) CVA (cerebral vascular accident) Qualifiers: Laterality of affected vessel: right Is this a current diagnosis for this admission?: Yes (2) Hypertension Is this a current diagnosis for this admission?: Yes (3) Tobacco dependence Is this a current diagnosis for this admission?: Yes (4) Hyperlipidemia Is this a current diagnosis for this admission?: YesPlan: Continue Lipitor after discharge - Time Time Spent with patient: Continue present management Patient will be transferred to acute rehabilitation facility when a bed is available Time Spent with patient: 25-34 minutes
[2016-10-31] MEDS: ASPIRIN 325 MG TABLET, ENT COATED PO SCH (10:47)
[2016-10-31] MEDS ORDERED: MAG HYDROX/AL HYDROX/SIMETH SUSP 30 ML UDCUP PO PRN (10:51)
[2016-10-31] MEDS ORDERED: LANSOPRAZOLE 30 MG TAB.RAP.DR PO ONE (11:30)
[2016-11-01] MEDS: LANSOPRAZOLE 30 MG TAB.RAP.DR PO SCH (05:18)
[2016-11-01] MEDS: HEPARIN SOD (PORCINE) 5,000 UNIT/ML 1 ML SYRINGE SUBCUT SCH ×3 (05:18→21:43)
[2016-11-01] MEDS: ASPIRIN 325 MG TABLET, ENT COATED PO SCH (09:51)
--- NOTE | 2016-11-01 18:53 | PDOC TRANSFER SUMMARY ---
General - Admit/Disc Date/PCP Admission Date/Primary Care Provider: 10/30/16 13:20 RADHA CARRASQUILLO Discharge Date: 11/02/16 - Discharge Diagnosis (1) CVA (cerebral vascular accident) Is this a current diagnosis for this admission?: YesSummary: Patient presented to the ED with right-sided numbness and weakness and slurred speech An MRI of the brain showed acute and subacute infarction of the left inferior latasha and left inferior and medial temporal lobes She was found not to be a candidate for TPA Patient was subsequently admitted to an IMCU unit for further care Patient had a workup including carotid ultrasound was normal Echocardiogram normal with an EF of 60% She was monitored she did not have arrhythmia Cardiac enzymes were normal Patient was evaluated by physical therapy she had significant right upper and lower extremity weakness She was found to be a candidate for acute rehabilitation (2) Hypertension Is this a current diagnosis for this admission?: YesSummary: Patient did not have any treatment for hypertension during her stay at discharge her blood pressure is 140/70 (3) Tobacco dependence Is this a current diagnosis for this admission?: YesSummary: Patient was given nicotine patch, had counseling on smoking cessation (4) Hyperlipidemia Is this a current diagnosis for this admission?: YesSummary: 10/30/16 06:27 Triglycerides 209 H Cholesterol 205.71 H LDL Cholesterol Direct 125 H VLDL Cholesterol 41.8 H HDL Cholesterol 48 Patient was treated with Lipitor 80 mg daily during her stay We will discharge her on Crestor 20 mg daily - Additional Information Resuscitation Status: Full Code Home Medications: Lisinopril/Hydrochlorothiazide [Lisinopril-Hctz 20-12.5 mg Tab] 1 each PO DAILY 10/27/16 History of Present Illness Admission Date/PCP: 10/30/16 13:20 RADHA CARRASQUILLO Patient complains of: Weakness right upper right lower extremity History of Present Illness: ERUM MONTANO is a 46 year old female, with a past medical history of hypertension. Who had been her usual state of health until approximately 2 weeks ago after starting a combination lisinopril and hydrochlorothiazide for hypertension. Patient and states her symptoms of dizziness began within 48 hours of his medication and notes that her blood pressure in the 220 systolic range dropped to the 130 systolic. 72 hours ago the patient developed right sided numbness and left lower extremity weakness, intermittent dizziness and slurred speech prompting her to seek evaluation emergency room having a workup including an EKG and CT of the head which was unremarkable, as symptoms were difficult to reproduce and intermittent she was discharged home with follow -up with primary care. The patient has had persistent symptoms in addition to headache prompting her to seek reevaluation of primary care whom referred her back to the emergency room where an MRI of the head reveals a subacute versus acute left inferior latasha and left inferior medial temporal lobe infarct. Patient is currently in no acute distress denying headache, blurred vision, word finding difficulty, or slurred speech. She does complain of right foot numbness and weakness. Hospital Course Hospital Course: See above Physical Exam Vital Signs: Temp Pulse Resp BP Pulse Ox 98.4 F 64 18 144/82 H 100 11/01/16 16:04 11/01/16 16:04 11/01/16 16:04 11/01/16 16:04 11/01/16 16:04 Intake & Output 10/31/16 11/01/16 11/02/16 00:59 00:59 00:59 Intake Total 869 1198 990 Output Total 450 850 700 Balance 419 348 290 Weight 88.4 kg 87.4 kg General appearance: PRESENT: no acute distress, well-developed, well-nourished Head exam: PRESENT: atraumatic, normocephalic Eye exam: PRESENT: conjunctiva pink, EOMI, PERRLA. ABSENT: scleral icterus Ear exam: PRESENT: normal external ear exam Mouth exam: PRESENT: moist, tongue midline Neck exam: ABSENT: carotid bruit, JVD, lymphadenopathy, thyromegaly Respiratory exam: PRESENT: clear to auscultation rayshawn. ABSENT: rales, rhonchi, wheezes Cardiovascular exam: PRESENT: RRR. ABSENT: diastolic murmur, rubs, systolic murmur Pulses: PRESENT: normal dorsalis pedis pul Vascular exam: PRESENT: normal capillary refill GI/Abdominal exam: PRESENT: normal bowel sounds, soft. ABSENT: distended, guarding, mass, organolmegaly, rebound, tenderness Rectal exam: PRESENT: deferred Extremities exam: PRESENT: full ROM. ABSENT: calf tenderness, clubbing, pedal edema Neurological exam: PRESENT: alert, awake, oriented to person, oriented to place , oriented to time, oriented to situation, other - unable to move right arm decrease strengh right lower extremity slight numbness right upper extremity. ABSENT: motor sensory deficit Psychiatric exam: PRESENT: appropriate affect, normal mood. ABSENT: homicidal ideation, suicidal ideation Skin exam: PRESENT: dry, intact, warm. ABSENT: cyanosis, rash Results Laboratory Results: Labs- Last Values WBC 7.1 10^3/uL (4.0-10.5) 10/30/16 06:27 RBC 4.89 10^6/uL (3.72-5.28) 10/30/16 06:27 Hgb 12.2 g/dL (12.0-15.5) 10/30/16 06:27 Hct 37.9 % (36.0-47.0) 10/30/16 06:27 MCV 78 fl (80-97) L 10/30/16 06:27 MCH 24.9 pg (27.0-33.4) L 10/30/16 06:27 MCHC 32.2 g/dL (32.0-36.0) 10/30/16 06:27 RDW 19.4 % (11.5-14.0) H 10/30/16 06:27 Plt Count 261 10^3/uL (150-450) 10/30/16 06:27 Seg Neutrophils % 46.5 % (42-78) 10/30/16 06:27 Lymphocytes % 36.2 % (13-45) 10/30/16 06:27 Monocytes % 9.7 % (3-13) 10/30/16 06:27 Eosinophils % 6.5 % (0-6) H 10/30/16 06:27 Basophils % 1.1 % (0-2) 10/30/16 06:27 Absolute Neutrophils 3.3 10^3/uL (1.7-8.2) 10/30/16 06:27 Absolute Lymphocytes 2.6 10^3/uL (0.5-4.7) 10/30/16 06:27 Absolute Monocytes 0.7 10^3/uL (0.1-1.4) 10/30/16 06:27 Absolute Eosinophils 0.5 10^3/uL (0.0-0.6) 10/30/16 06:27 Absolute Basophils 0.1 10^3/uL (0.0-0.2) 10/30/16 06:27 ESR 10 mm/hr (0-20) 10/30/16 00:03 Sodium 139.5 mmol/L (137-145) 10/30/16 06:27 Potassium 4.2 mmol/L (3.6-5.0) 10/30/16 06:27 Chloride 109 mmol/L (98-107) H 10/30/16 06:27 Carbon Dioxide 22 mmol/L (22-30) 10/30/16 06:27 Anion Gap 9 (5-19) 10/30/16 06:27 BUN 15 mg/dL (7-20) 10/30/16 06:27 Creatinine 0.72 mg/dL (0.52-1.25) 10/30/16 06:27 Est GFR ( Amer) > 60 (>60) 10/30/16 06:27 Est GFR (Non-Af Amer) > 60 (>60) 10/30/16 06:27 Glucose 83 mg/dL (75-110) 10/30/16 06:27 Hemoglobin A1c % 5.6 % (4.7-6.0) 10/30/16 06:27 Calcium 8.7 mg/dL (8.4-10.2) 10/30/16 06:27 Total Bilirubin 0.5 mg/dL (0.2-1.3) 10/29/16 18:20 Direct Bilirubin 0.0 mg/dL (0.0-0.3) 10/29/16 18:20 AST 15 U/L (14-36) 10/29/16 18:20 ALT 23 U/L (9-52) 10/29/16 18:20 Alkaline Phosphatase 80 U/L (38-126) 10/29/16 18:20 Troponin I < 0.012 ng/mL 10/29/16 18:20 Total Protein 6.5 g/dL (6.3-8.2) 10/29/16 18:20 Albumin 4.1 g/dL (3.5-5.0) 10/29/16 18:20 Triglycerides 209 mg/dL (<150) H 10/30/16 06:27 Cholesterol 205.71 mg/dL (0-200) H 10/30/16 06:27 LDL Cholesterol Direct 125 mg/dL (<100) H 10/30/16 06:27 VLDL Cholesterol 41.8 mg/dL (10-31) H 10/30/16 06:27 HDL Cholesterol 48 mg/dL (>40) 10/30/16 06:27 No there is no and do anything is normal and is she will she doesn't want it is so I'm Impressions: Brain MRI with MRA 10/29/16 00:00 IMPRESSION: NORMAL MRA OF [place]. Chest X-Ray 10/29/16 00:00 IMPRESSION: NO ACUTE RADIOGRAPHIC FINDING IN THE CHEST. Head CT 10/29/16 15:21 IMPRESSION: NORMAL BRAIN CT WITHOUT CONTRAST. Head MRI 10/29/16 16:59 IMPRESSION: Positive for 2 small foci of acute or sub-acute infarction in the left inferior latasha and left inferior-medial temporal lobe. Cervical Spine MRI 10/29/16 17:00 IMPRESSION: C5-C6: Mild spinal stenosis and exit foraminal stenosis.2.3 cm subcutaneous mixed signal ovoid lesion, possible dermal inclusion cyst or atypical lipoma. Carotid Doppler Study 11/01/16 00:00 IMPRESSION: NO HEMODYNAMICALLY SIGNIFICANT STENOSIS. Transfer Plan - Disposition Transfer Plan: Transfer to acute rehab [facility] - Time Spent with Patient Time spent with patient: Greater than 30 Minutes Plan Discharge Plan: to acute rehab follow up with Dr Kaplan Cardiology for Event monitor in 2 weeks Time Spent: Greater than 30 Minutes
[2016-11-01] MEDS: ATORVASTATIN CALCIUM 80 MG TABLET PO SCH (21:43)
[2016-11-02] MEDS: LANSOPRAZOLE 30 MG TAB.RAP.DR PO SCH (06:25)
[2016-11-02] MEDS: HEPARIN SOD (PORCINE) 5,000 UNIT/ML 1 ML SYRINGE SUBCUT SCH (06:25)
[2016-11-02] MEDS: ASPIRIN 325 MG TABLET, ENT COATED PO SCH (09:15)
[2016-11-02 12:28] VITALS: BP 126/71
--- NOTE | 2016-11-02 18:59 | PDOC PROGRESS REPORT ---
Subjective Progress Note for:: 11/02/16 Subjective:: Patient was admitted with sudden onset right-sided weakness and was found to have an acute left latasha and temporal lobe ischemic infarct on MRI. She underwent a thorough evaluation and found no additional correctable causes. She was started on appropriate antiplatelet therapy. She was seen by physical and occupational and speech therapy, see Dr. Thomas's discharge summary for full details. I arrived from the patient sitting on the edge of the bed with her. Critical she is alert and oriented to person place and time. The only Neurologic deficits continue to be loss of use of the right arm, right foot drop with right ankle 6 beat clonus. She exhibits no dysphagia, confusion or paresthesias. She is able to participate in therapies and showing signs of progress. Arrangements have been made for placement at acute rehabilitation center and she is stable at this time for discharge. Physical Exam Vital Signs: Temp Pulse Resp BP Pulse Ox 98.0 F 65 16 126/71 H 100 11/02/16 12:27 11/02/16 12:27 11/02/16 12:27 11/02/16 12:27 11/02/16 12:27 Intake & Output 11/01/16 11/02/16 11/03/16 06:59 06:59 06:59 Intake Total 1248 1459 696 Output Total 1050 1150 350 Balance 198 309 346 Weight 87.4 kg 88.2 kg Results Impressions: Brain MRI with MRA 10/29/16 00:00 IMPRESSION: NORMAL MRA OF [place]. Chest X-Ray 10/29/16 00:00 IMPRESSION: NO ACUTE RADIOGRAPHIC FINDING IN THE CHEST. Head CT 10/29/16 15:21 IMPRESSION: NORMAL BRAIN CT WITHOUT CONTRAST. Head MRI 10/29/16 16:59 IMPRESSION: Positive for 2 small foci of acute or sub-acute infarction in the left inferior latasha and left inferior-medial temporal lobe. Cervical Spine MRI 10/29/16 17:00 IMPRESSION: C5-C6: Mild spinal stenosis and exit foraminal stenosis.2.3 cm subcutaneous mixed signal ovoid lesion, possible dermal inclusion cyst or atypical lipoma. Carotid Doppler Study 11/01/16 00:00 IMPRESSION: NO HEMODYNAMICALLY SIGNIFICANT STENOSIS. Status: Imported from PACS
== END 2016-11-02 12:31 | DRG 65 ==
LOC: ER 13:38 → EH 21:58 → 3W 10-30 03:00 → OBSVTOIN 10-30 13:20
PROVIDERS: ADMIT Internal Medicine; ATTEND Internal Medicine
DX: I63.8 Other cerebral infarction (principal); G81.91 Hemiplegia, unspecified affecting right dominant side; R47.81 Slurred speech; I10 Essential (primary) hypertension; E78.5 Hyperlipidemia, unspecified; Z79.899 Other long term (current) drug therapy; F17.210 Nicotine dependence, cigarettes, uncomplicated
CPT/HCPCS: 36415; 70450; 70544; 70551; 71010; 72141; 80048; 80053; 80061; 83036; 84484; 85025; 85652; 93005; 93010; 93306; 93880; 99285; G0378; J0780; J1644; J2405; J3490; J7030

== ENCOUNTER → 2017-10-20 | Outpatient (CLI) | payer MEDICAID ==
--- NOTE | 2017-10-24 12:03 | WOMENS IMAGING REPORT ---
EXAM DESCRIPTION: LEFT DIAGNOSTIC MAMMO W/CAD; U/S BREAST UNILATERAL, COMPL COMPLETED DATE/TIME: 10/20/2017 10:49 am; 10/20/2017 12:53 pm REASON FOR STUDY: INCONCLUSIVE FINDINGS; R92.8; LT BREAST R92.8 R92.8 OTH ABN AND INCONCLUSIVE FIND INGS ON DX IMAGING OF EMILIANO COMPARISON: 08/10/2017. TECHNIQUE: Additional true lateral and spot compression MLO and CC images acquired. LIMITATIONS: None. FINDINGS: BREAST: left MASSES: Circumscribed mass in the central breast. Smooth margins. CALCIFICATIONS: No new or suspicious calcifications. ARCHITECTURAL DISTORTION: None. DEVELOPING DENSITY: None. ASYMMETRY: None noted. OTHER: No other significant findings. BREAST ULTRASOUND: TECHNIQUE: Static and dynamic grayscale images acquired of the left breast in the specific areas of c linical/mammographic concern. Selected color Doppler images recorded. ELASTOGRAPHY PERFORMED: No. LIMITATIONS: None. FINDINGS: MASS: In the central breast there is a 0.7 x 1.2 cm homogeneous solid mass. This has smooth circumsc ribed margins. Oriented parallel to the skin. No distal shadowing. No significant vascularity on D oppler imaging. ELASTOGRAPHY CHARACTERISTICS: Not applicable. OTHER: No other significant finding. IMPRESSION: Circumscribed solid mass in the central breast. 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 No pa rticularly suspicious mammographic or sonographic characteristics. BREAST DENSITY: b. There are scattered areas of fibroglandular density. BIRAD: 3 Probably benign finding. Initial short-interval follow-up suggested. RECOMMENDATION: RECOMMENDED FOLLOW UP: Birads 3: The patient will return in 6 months for follow-up owen hogan. SPECIFIC INTERVENTION/IMAGING/CONSULTATION RECOMMENDED:The patient will return for 6 month follow-up diagnostic mammography(tomosynthesis) and targeted breast ultrasound. COMMUNICATION:The imaging findings were not discussed with the patient. Her referring provider has be en notified of the findings. COMMENT: The patient has been notified of the results by letter per MQSA requirements. Additional no tification policies are in place for contacting patient with suspicious or incomplete findings. Quality ID #225: The [employer] recommends an annual screening mammogram for women aged 40 years or over. This facility utilizes a reminder system to ensure that all patients receive reminder letters, and/or direct phone calls for appointments. This includes reminders for routine scr eening mammograms, diagnostic mammograms, or other Breast Imaging Interventions when appropriate. Th is patient will be placed in the appropriate reminder system. The [employer] ([employer]) has developed recommendations for screening MRI of the breast s in certain patient populations, to be used in conjunction with mammography. Breast MRI surveillanc e may be appropriate for women with more than 20% lifetime risk of developing breast cancer as deter mined by genetic testing, significant family history of the disease, or history of mantle radiation f or Hodgkins Disease. ACR Practice Guidelines 2008. TECHNICAL DOCUMENTATION: FINDING NUMBER: (1) ASSESSMENT: (1) JOB ID: [id number] [employer]- All Rights Reserved
== END ==
LOC: WI 10:23
PROVIDERS: ATTEND Nurse Practitioner Family
DX: N63.20 Unspecified lump in the left breast, unspecified quadrant (principal)
CPT/HCPCS: 76641

== ENCOUNTER → 2020-10-17 | Outpatient (CLI) | payer MEDICARE ==
--- NOTE | 2020-10-17 11:43 | WOMENS IMAGING REPORT ---
EXAM DESCRIPTION: BILAT SCREENING MAMMO W/CAD IMAGES COMPLETED DATE/TIME: 10/17/2020 10:02 am REASON FOR STUDY: ROUTINE SCREENING MAMMOGRAM Z12.31 Z12.31 ENCNTR SCREEN MAMMOGRAM FOR MALIGNANT N EOPLASM OF EMILIANO COMPARISON: Diagnostic left breast imaging from 2018 to include ultrasound and mammography. EXAM PARAMETERS: Standard craniocaudal and mediolateral oblique views of each breast recorded using digital acquisition. Read with the assistance of CAD. .[facility] - [employer] Version 9.2 LIMITATIONS: None. FINDINGS: Findings present which are benign by mammographic criteria. No suspicious masses, calcifi cations or architectural distortion. Pertinent benign findings: Small mass in the left breast close to 6 o'clock mid depth. No change. Benign mammographic findings may include one or more of the following: Smooth masses, popcorn/rim/co arse calcifications, asymmetries, post-procedure changes, and lesions with long-standing stability. IMPRESSION: BENIGN MAMMOGRAPHIC FINDINGS. BIRADS 2 BREAST DENSITY: b. There are scattered areas of fibroglandular density. BIRAD: ASSESSMENT: 2 BENIGN FINDING(S) RECOMMENDATION: ROUTINE SCREENING COMMENT: The patient has been notified of the results by letter per MQSA requirements. Additional no tification policies are in place for contacting patient with suspicious or incomplete findings. Quality ID #225: The [employer] recommends an annual screening mammogram for women aged 40 years or over. This facility utilizes a reminder system to ensure that all patients receive reminder letters, and/or direct phone calls for appointments. This includes reminders for routine scr eening mammograms, diagnostic mammograms, or other Breast Imaging Interventions when appropriate. Th is patient will be placed in the appropriate reminder system. TECHNICAL DOCUMENTATION: FINDING NUMBER: (1) ASSESSMENT: (1) JOB ID: [id number] 2010 [employer]- All Rights Reserved Reading location - IP/workstation name: [email or web address]
== END ==
LOC: WI 09:58
PROVIDERS: ATTEND Physician Assistant Medical
DX: Z12.31 Encounter for screening mammogram for malignant neoplasm of breast (principal)
CPT/HCPCS: 77067